=== PATIENT | male | born 1950 | race American Indian/Alaskan Native ===

== ENCOUNTER 2019-07-19 09:00 | Emergency (ER) | payer OTHER ==
[2019-07-19] MEDS ORDERED: predniSONE 20 MG TAB PO ONE (10:18)
[2019-07-19] MEDS ORDERED: ALBUTEROL 2.5 MG/3 ML NEBU IH ONE (10:18)
[2019-07-19] MEDS ORDERED: IPRATROPIUM 0.02% NEBU 2.5 ML IH ONE (10:18)
--- NOTE | 2019-07-19 10:22 | Emergency Department Report ---
- General Chief Complaint: Nausea/Vomiting/Diarrhea Stated Complaint: ASTHAM/VIRUS Time Seen by Provider: 07/19/19 10:13 Source: patient Mode of arrival: Ambulatory Limitations: No Limitations - History of Present Illness Initial Comments: 69 yo M, hx asthma, presents to ED with complaint of flu-like symptoms. Pt reports cough, wheezing, diarrhea, body aches x3 days. Has been taking cough medications at home. Denies chest pain, abdominal pain, vomiting. Pt reports he did get the flu shot this season. MD Complaint: cough -: days(s) (3) Severity: moderate Consistency: constant Improves With: nothing Worsens With: nothing Associated Symptoms: myalgias, headache, cough, shortness of breath (wheezing), diarrhea. denies: chest pain, abdominal pain, nausea, vomiting Treatments Prior to Arrival: "cold medicine" - Related Data Previous Rx's Medication Instructions Recorded Last Taken Type Albuterol Sulfate [Proventil Hfa] 2 puff IH Q4HR PRN #1 hfa.aer.ad 07/19/19 Unknown Rx Benzonatate [Tessalon Perles] 100 mg PO Q8HR PRN #20 capsule 07/19/19 Unknown Rx Naproxen [Naprosyn] 500 mg PO BID #20 tablet 07/19/19 Unknown Rx predniSONE [Deltasone] 50 mg PO QDAY #5 tab 07/19/19 Unknown Rx Allergies Allergy/AdvReac Type Severity Reaction Status Date / Time No Known Allergies Allergy Verified 07/19/19 09:02 ED Review of Systems ROS: Stated complaint: ASTHAM/VIRUS Other details as noted in HPI Comment: All other systems reviewed and negative Constitutional: denies: fever Respiratory: shortness of breath, wheezing Cardiovascular: denies: chest pain Gastrointestinal: diarrhea. denies: abdominal pain, nausea, vomiting Musculoskeletal: myalgia Neurological: headache ED Past Medical Hx - Past Medical History Previous Medical History?: Yes Hx Asthma: Yes - Surgical History Past Surgical History?: No - Social History Smoking Status: Former Smoker Substance Use Type: Alcohol - Medications Home Medications: Home Medications Medication Instructions Recorded Confirmed Last Taken Type Albuterol Sulfate [Proventil Hfa] 2 puff IH Q4HR PRN #1 hfa.aer.ad 07/19/19 Unknown Rx Benzonatate [Tessalon Perles] 100 mg PO Q8HR PRN #20 capsule 07/19/19 Unknown Rx Naproxen [Naprosyn] 500 mg PO BID #20 tablet 07/19/19 Unknown Rx predniSONE [Deltasone] 50 mg PO QDAY #5 tab 07/19/19 Unknown Rx ED Physical Exam - General Limitations: No Limitations General appearance: alert, in no apparent distress - Head Head exam: Present: atraumatic, normocephalic - Eye Eye exam: Present: normal appearance, EOMI - ENT ENT exam: Present: mucous membranes moist - Neck Neck exam: Present: normal inspection - Respiratory Respiratory exam: Present: wheezes - Cardiovascular Cardiovascular Exam: Present: normal rhythm, tachycardia - GI/Abdominal GI/Abdominal exam: Present: soft. Absent: distended, tenderness - Extremities Exam Extremities exam: Present: normal inspection - Neurological Exam Neurological exam: Present: alert, oriented X3 - Psychiatric Psychiatric exam: Present: normal affect, normal mood - Skin Skin exam: Present: warm, dry, intact, normal color ED Course Vital Signs 07/19/19 07/19/19 07/19/19 09:06 09:21 10:56 Temperature 99.3 F 99.3 F Pulse Rate 108 H 109 H Pulse Rate [ 109 H Anterior Bilateral Throughout] Respiratory 20 20 Rate Respiratory 18 Rate [Anterior Bilateral Throughout] Blood Pressure 118/74 118/74 Blood Pressure [Right] O2 Sat by Pulse 100 100 Oximetry 07/19/19 13:23 Temperature 98.6 F Pulse Rate 92 H Pulse Rate [ Anterior Bilateral Throughout] Respiratory 20 Rate Respiratory Rate [Anterior Bilateral Throughout] Blood Pressure Blood Pressure 116/70 [Right] O2 Sat by Pulse 99 Oximetry ED Medical Decision Making - Lab Data Result diagrams: 07/19/19 10:34 07/19/19 10:34 - Radiology Data Radiology results: report reviewed, image reviewed - Medical Decision Making 69 yo M w/ asthma exacerbation, viral illness. CXR negative. Neb treatment given. Flu swabs negative. Labs show mild hyponatremia, NS bolus given. Vitals are normal. Pt is feeling much better at this time. Will discharge w/ prescriptions. Outpt f/u advised. Return precautions given. - Differential Diagnosis asthma, pneumonia, flu Critical care attestation.: If time is entered above; I have spent that time in minutes in the direct care of this critically ill patient, excluding procedure time. ED Disposition Clinical Impression: Acute asthma exacerbation, Viral illness, Hyponatremia Disposition: DC-01 TO HOME OR SELFCARE Is pt being admited?: No Condition: Stable Instructions: Asthma (ED), Viral Syndrome (ED) Prescriptions: predniSONE [Deltasone] 50 mg PO QDAY #5 tab Naproxen [Naprosyn] 500 mg PO BID #20 tablet Albuterol Sulfate [Proventil Hfa] 2 puff IH Q4HR PRN #1 hfa.aer.ad PRN Reason: Wheezing Benzonatate [Tessalon Perles] 100 mg PO Q8HR PRN #20 capsule PRN Reason: Cough Referrals: VIELKA CASTRO MD [Primary Care Provider] - 3-5 Days Time of Disposition: 12:41
--- NOTE | 2019-07-19 10:44 | XRay Report ---
CHEST 2 VIEWS INDICATION: MAIN: cough since Sunday.. COMPARISON: None. FINDINGS: Support devices: None. Heart: Within normal limits. Lungs/Pleura: No acute air space or interstitial disease. No significant pleural effusion. IMPRESSION: No acute findings. Signer Name: Toro Adler MD Signed: 07/19/2019 10:39 AM Workstation Name: [id number]
[2019-07-19 10:54] LABS: Basophils # (Auto) 0.1 K/mm3 (0.0-0.1); Basophils % (Auto) 0.7 % (0.0-1.8); Hematocrit 45.5 % (35.5-45.6); Lymphocytes # (Auto) 1.1 K/mm3 (1.2-5.4); Lymphocytes % (Auto) 11.9 % (13.4-35.0); Mean Corpuscular HGB Conc 33 % (32-34); Mean Corpuscular Volume 81 fl (84-94); Monocytes # (Auto) 0.6 K/mm3 (0.0-0.8); Monocytes % (Auto) 6.4 % (0.0-7.3); Platelet Count 248 K/mm3 (140-440); Red Blood Count 5.61 M/mm3 (3.65-5.03); Red Cell Distribution Width 15.1 % (13.2-15.2)
[2019-07-19 11:21] LABS: Calcium 8.8 mg/dL (8.4-10.2)
[2019-07-19] MEDS ORDERED: SODIUM CHLORIDE 0.9% 1000 ML 1,000 ML IV ONE (11:25)
[2019-07-19 13:24] VITALS: BP 116/70
== END 2019-07-19 13:23 | disposition home or self-care (01) ==
LOC: ED 09:00
DX: J45.901 Unspecified asthma with (acute) exacerbation (principal); B34.9 Viral infection, unspecified; E87.1 Hypo-osmolality and hyponatremia; Z87.891 Personal history of nicotine dependence; Z79.899 Other long term (current) drug therapy
CPT/HCPCS: 36415; 71046; 80048; 85025; 87400; 94640; 99284; J7030; J7512; 94644